=== PATIENT | male | born 1980 | race Caucasian/White ===

== ENCOUNTER 2018-08-26 03:47 | Emergency (ER) | payer SELFPAY ==
[~2018-08-26] VITALS: Ht 172.7 cm; Wt 68.9 kg
[2018-08-26 03:47] VITALS: BP_SYST 162
[2018-08-26 04:19] VITALS: BP_SYST 162
== END 2018-08-26 04:26 ==
LOC: SED 03:47
DX: S09.90XA Unspecified injury of head, initial encounter (principal); R03.0 Elevated blood-pressure reading, without diagnosis of hypertension; W22.8XXA Striking against or struck by other objects, initial encounter; Y93.89 Activity, other specified; Y92.89 Other specified places as the place of occurrence of the external cause; Y99.8 Other external cause status
CPT/HCPCS: 99283